=== PATIENT | female | born 1945 | race Caucasian/White ===

== ENCOUNTER 2021-06-07 13:48 | Inpatient (IN) ==
[2021-06-07] MEDS ORDERED: Ondansetron ODT 4 MG TAB.RAPDIS SL PRN (21:13)
[2021-06-07] MEDS: ALPRAZolam 0.5 MG TABLET PO PRN (22:55)
[2021-06-08] MEDS ORDERED: amLODIPine 5 MG TABLET PO STA (00:02)
[2021-06-08] MEDS: *HR* OxyCODONE Immed Rel 5 MG TABLET PO PRN ×4 (02:11→23:57)
[2021-06-08] MEDS ORDERED: *HR* Enoxaparin 30 MG/0.3 ML SYRINGE SQ SCH (04:30)
[2021-06-08 04:37] LABS: Basophils % 0.2 %; Eosinophils # 0.6 K/mcL (0.0-0.6); Eosinophils % 6.4 %; Hematocrit 31.5 % (35.3-44.9); Hemoglobin 9.8 g/dL (11.5-15.4); Immature Granulocytes % 1.9 % (0-4); Lymphocytes # 1.4 K/mcL (0.6-4.6); Lymphocytes % 13.6 %; Mean Corpuscular HGB Conc 31.1 g/dL (31.6-35.5); Mean Corpuscular Hemoglobin 30.6 pg (28.0-33.3); Mean Corpuscular Volume 98.4 fL (83.0-100.0); Mean Platelet Volume 9.1 fL (9.4-12.4); Monocytes % 10.3 %; Neutrophils # 6.8 K/mcL (1.6-8.9); Platelet Count 216 K/mcL (140-400); Red Cell Distribution Width 16.9 % (11.5-14.5); Segmented Neutrophils % 67.6 %; White Blood Count 10.1 K/mcL (4.3-11.1)
[2021-06-08 04:47] LABS: Clarity,Urine Slightly cloudy (Clear); Color,Urine Yellow (Yellow); Glucose,Urine (UA) Normal (Normal)
[2021-06-08 04:48] LABS: Amorphous Sediment,Urine Few per hpf (None-Few); Bilirubin,Urine Negative (Negative); Blood,Urine Large (Negative); Hyaline Casts,Urine Few per lpf (None Seen); Ketones,Urine Negative (Negative); Leukocyte Esterase,Urine Negative (Negative); Nitrite,Urine Negative (Negative); Protein,Urine 30 mg/dL (Neg-Trace); Specific Gravity,Urine 1.015 (1.010-1.025); Squamous Epithelial Cell,Urine Few per hpf (None-Few); Urobilinogen,Urine Normal (Normal)
[2021-06-08 04:53] LABS: Alanine Aminotransferase 16 Units/L (7-52); Albumin 2.8 g/dL (3.5-5.7); Albumin/Globulin Ratio 1.3 (1.1-2.2); Alkaline Phosphatase 41 Units/L (34-104); Aspartate Amino Transferase 35 Units/L (13-39); BUN/Creatinine Ratio 19 (6-26); Bilirubin,Total 0.5 mg/dL (0.3-1.0); Blood Urea Nitrogen 13 mg/dL (8-23); Calcium 8.2 mg/dL (8.6-10.3); Carbon Dioxide 29 mEq/L (23-29); Chloride 108 mEq/L (98-107); Globulin 2.2 g/dL (2.4-3.5); Glucose 89 mg/dL (70-105); Osmolality,Calculated 290 (280-300); Potassium 3.7 mEq/L (3.5-5.1); Sodium 140 mEq/L (136-145); eGFR For African Americans > 60 (> 60); eGFR For Non-African Americans > 60 (> 60)
[2021-06-08] MEDS: atenoloL 50 MG TABLET PO SCH (05:32)
[2021-06-08] MEDS: amLODIPine 5 MG TABLET PO SCH (05:32)
[2021-06-08] MEDS ORDERED: hydrALAZINE 25 MG TABLET PO ONE (07:57)
[2021-06-08] MEDS: Aspirin 81 MG TAB.CHEW PO SCH (08:26)
[2021-06-08] MEDS: ALPRAZolam 0.5 MG TABLET PO PRN ×2 (08:26→16:52)
[2021-06-08] MEDS: Ipratropium/Albuterol Neb 3 ML IH PRN (08:52)
[2021-06-09] MEDS: Ipratropium/Albuterol Neb 3 ML IH PRN (00:07)
[2021-06-09] MEDS: *HR* OxyCODONE Immed Rel 5 MG TABLET PO PRN ×3 (04:36→12:48)
[2021-06-09 05:13] LABS: Basophils % 0.4 %; Eosinophils % 3.9 %; Hematocrit 30.9 % (35.3-44.9); Hemoglobin 9.7 g/dL (11.5-15.4); Immature Granulocytes % 1.3 % (0-4); Lymphocytes # 1.2 K/mcL (0.6-4.6); Lymphocytes % 10.4 %; Mean Corpuscular HGB Conc 31.4 g/dL (31.6-35.5); Mean Corpuscular Hemoglobin 30.9 pg (28.0-33.3); Mean Corpuscular Volume 98.4 fL (83.0-100.0); Mean Platelet Volume 9.2 fL (9.4-12.4); Monocytes # 1.1 K/mcL (0.0-1.3); Monocytes % 9.4 %; Neutrophils # 8.5 K/mcL (1.6-8.9); Platelet Count 243 K/mcL (140-400); Red Blood Count 3.14 M/mcL (3.82-4.97); Red Cell Distribution Width 16.6 % (11.5-14.5); Segmented Neutrophils % 74.6 %; White Blood Count 11.4 K/mcL (4.3-11.1)
[2021-06-09 05:17] LABS: Basophils # 0.1 K/mcL (0.0-0.2); Eosinophils # 0.4 K/mcL (0.0-0.6)
[2021-06-09 05:26] LABS: BUN/Creatinine Ratio 17 (6-26); Blood Urea Nitrogen 13 mg/dL (8-23); Calcium 8.3 mg/dL (8.6-10.3); Carbon Dioxide 29 mEq/L (23-29); Chloride 104 mEq/L (98-107); Glucose 95 mg/dL (70-105); Osmolality,Calculated 290 (280-300); Potassium 3.7 mEq/L (3.5-5.1); Sodium 140 mEq/L (136-145); eGFR For African Americans > 60 (> 60); eGFR For Non-African Americans > 60 (> 60)
[2021-06-09] MEDS ORDERED: *HR* Enoxaparin 40 MG/0.4 ML SYRINGE SQ SCH (06:00)
[2021-06-09] MEDS: ALPRAZolam 0.5 MG TABLET PO PRN ×2 (06:31→16:12)
[2021-06-09] MEDS: amLODIPine 5 MG TABLET PO SCH (07:49)
[2021-06-09] MEDS: Aspirin 81 MG TAB.CHEW PO SCH (07:50)
[2021-06-09] MEDS: atenoloL 50 MG TABLET PO SCH (07:50)
[2021-06-09] MEDS ORDERED: Isovue-370 500 ML BOTTLE IVP ONE (13:50)
[2021-06-09] MEDS ORDERED: *HR* Heparin 5,000 UNIT/ML VIAL IVP ONE (17:05)
[2021-06-09] MEDS ORDERED: *HR* Heparin 5,000 UNIT/ML VIAL IVP PRN ×2 (17:05)
[2021-06-09] MEDS ORDERED: Heparin 25,000UNIT/250ML 1/2NS 25,000 UNIT/250 ML IV.SOLN IVC SCH (17:15)
[2021-06-09 17:40] VITALS: BP 159/81
[2021-06-09 17:50] LABS: Hematocrit 31.4 % (35.3-44.9); Hemoglobin 9.9 g/dL (11.5-15.4); Mean Corpuscular HGB Conc 31.5 g/dL (31.6-35.5); Mean Corpuscular Hemoglobin 30.7 pg (28.0-33.3); Mean Corpuscular Volume 97.5 fL (83.0-100.0); Mean Platelet Volume 8.8 fL (9.4-12.4); Platelet Count 237 K/mcL (140-400); Red Blood Count 3.22 M/mcL (3.82-4.97); Red Cell Distribution Width 16.3 % (11.5-14.5); White Blood Count 10.5 K/mcL (4.3-11.1)
[2021-06-09 18:05] LABS: INR 1.1; Prothrombin Time 12.2 Seconds (9.4-12.1)
[2021-06-09 18:13] LABS: Heparin anti-factor XA UFH < 0.04 IU/mL (0.30-0.70)
== END 2021-06-09 18:45 | disposition short-term general hospital (02) | DRG 945 ==
LOC: INPGRE 20:00
PROVIDERS: ADMIT Family Medicine; ATTEND Family Medicine

== ENCOUNTER 2021-06-14 21:15 | Inpatient (IN) ==
[2021-06-14] MEDS ORDERED: Ipratropium/Albuterol Neb 3 ML IH PRN (22:28)
[2021-06-14] MEDS: ALPRAZolam 1 MG TABLET PO PRN (23:09)
[2021-06-15 05:07] LABS: Basophils # 0.1 K/mcL (0.0-0.2); Basophils % 0.8 %; Eosinophils # 0.3 K/mcL (0.0-0.6); Eosinophils % 5.3 %; Hematocrit 32.8 % (35.3-44.9); Immature Granulocytes % 0.8 % (0-4); Lymphocytes # 1.6 K/mcL (0.6-4.6); Lymphocytes % 25.3 %; Mean Corpuscular HGB Conc 30.5 g/dL (31.6-35.5); Mean Corpuscular Hemoglobin 30.2 pg (28.0-33.3); Mean Corpuscular Volume 99.1 fL (83.0-100.0); Mean Platelet Volume 9.2 fL (9.4-12.4); Monocytes # 0.5 K/mcL (0.0-1.3); Monocytes % 8.3 %; Neutrophils # 3.8 K/mcL (1.6-8.9); Platelet Count 233 K/mcL (140-400); Red Blood Count 3.31 M/mcL (3.82-4.97); Segmented Neutrophils % 59.5 %; White Blood Count 6.4 K/mcL (4.3-11.1)
[2021-06-15 05:09] LABS: INR 2.3; Prothrombin Time 26.3 Seconds (9.4-12.1)
[2021-06-15 05:12] LABS: Activated Partial Thrombo Time 37.5 Seconds (26.0-36.0)
[2021-06-15 05:20] LABS: BUN/Creatinine Ratio 13 (6-26); Blood Urea Nitrogen 11 mg/dL (8-23); Carbon Dioxide 33 mEq/L (23-29); Chloride 103 mEq/L (98-107); Glucose 87 mg/dL (70-105); Osmolality,Calculated 289 (280-300); Potassium 3.9 mEq/L (3.5-5.1); Sodium 140 mEq/L (136-145); eGFR For African Americans > 60 (> 60); eGFR For Non-African Americans > 60 (> 60)
[2021-06-15] MEDS: atenoloL 50 MG TABLET PO SCH (10:04)
[2021-06-15] MEDS: Aspirin 81 MG TAB.CHEW PO SCH (10:04)
[2021-06-15] MEDS: amLODIPine 5 MG TABLET PO SCH (10:04)
[2021-06-15] MEDS: ALPRAZolam 1 MG TABLET PO PRN ×2 (10:08→20:46)
[2021-06-16 04:46] LABS: Basophils % 0.6 %; Eosinophils # 0.4 K/mcL (0.0-0.6); Eosinophils % 6.5 %; Hematocrit 32.8 % (35.3-44.9); Hemoglobin 10.1 g/dL (11.5-15.4); Immature Granulocytes % 0.8 % (0-4); Lymphocytes # 1.7 K/mcL (0.6-4.6); Lymphocytes % 27.6 %; Mean Corpuscular HGB Conc 30.8 g/dL (31.6-35.5); Mean Corpuscular Hemoglobin 30.1 pg (28.0-33.3); Mean Corpuscular Volume 97.9 fL (83.0-100.0); Mean Platelet Volume 8.7 fL (9.4-12.4); Monocytes # 0.6 K/mcL (0.0-1.3); Monocytes % 8.9 %; Neutrophils # 3.5 K/mcL (1.6-8.9); Platelet Count 208 K/mcL (140-400); Red Blood Count 3.35 M/mcL (3.82-4.97); Red Cell Distribution Width 15.8 % (11.5-14.5); Segmented Neutrophils % 55.6 %; White Blood Count 6.3 K/mcL (4.3-11.1)
[2021-06-16 05:00] LABS: INR 2.2; Prothrombin Time 24.6 Seconds (9.4-12.1)
[2021-06-16 05:12] LABS: BUN/Creatinine Ratio 13 (6-26); Blood Urea Nitrogen 12 mg/dL (8-23); Calcium 8.8 mg/dL (8.6-10.3); Carbon Dioxide 31 mEq/L (23-29); Chloride 102 mEq/L (98-107); Glucose 91 mg/dL (70-105); Osmolality,Calculated 287 (280-300); Potassium 3.8 mEq/L (3.5-5.1); Sodium 139 mEq/L (136-145); eGFR For African Americans > 60 (> 60); eGFR For Non-African Americans 58 (> 60)
[2021-06-16] MEDS: ALPRAZolam 1 MG TABLET PO PRN ×2 (08:33→19:46)
[2021-06-16] MEDS: amLODIPine 5 MG TABLET PO SCH (08:34)
[2021-06-16] MEDS: atenoloL 50 MG TABLET PO SCH (08:34)
[2021-06-16] MEDS: Aspirin 81 MG TAB.CHEW PO SCH (08:34)
[2021-06-16] MEDS: Acetaminophen 325 MG TABLET PO PRN (16:17)
[2021-06-16] MEDS ORDERED: *HR* Warfarin 2 MG TABLET PO ONE (18:00)
[2021-06-16] MEDS ORDERED: Warfarin perPT PO PRN (18:00)
[2021-06-17] MEDS: Ondansetron ODT 4 MG TAB.RAPDIS SL PRN (03:25)
[2021-06-17 07:06] LABS: INR 1.6; Prothrombin Time 18.4 Seconds (9.4-12.1)
[2021-06-17] MEDS: atenoloL 50 MG TABLET PO SCH (08:55)
[2021-06-17] MEDS: Aspirin 81 MG TAB.CHEW PO SCH (08:56)
[2021-06-17] MEDS: amLODIPine 5 MG TABLET PO SCH (08:56)
[2021-06-17] MEDS: ALPRAZolam 1 MG TABLET PO PRN ×2 (09:02→20:56)
[2021-06-17] MEDS ORDERED: *HR* Heparin 5,000 UNIT/ML VIAL IVP ONE (10:35)
[2021-06-17] MEDS ORDERED: *HR* Heparin 5,000 UNIT/ML VIAL IVP PRN ×2 (10:35)
[2021-06-17] MEDS: Heparin 25,000UNIT/250ML 1/2NS 25,000 UNIT/250 ML IV.SOLN IVC SCH (11:49)
[2021-06-17 13:04] LABS: Hematocrit 29.4 % (35.3-44.9); Hemoglobin 9.1 g/dL (11.5-15.4); Mean Corpuscular Hemoglobin 30.4 pg (28.0-33.3); Mean Corpuscular Volume 98.3 fL (83.0-100.0); Mean Platelet Volume 8.6 fL (9.4-12.4); Platelet Count 201 K/mcL (140-400); Red Blood Count 2.99 M/mcL (3.82-4.97); Red Cell Distribution Width 15.4 % (11.5-14.5); White Blood Count 7.1 K/mcL (4.3-11.1)
[2021-06-17 13:09] LABS: INR 1.8; Prothrombin Time 20.9 Seconds (9.4-12.1)
[2021-06-17 13:12] LABS: Heparin anti-factor XA UFH 1.16 IU/mL (0.30-0.70)
[2021-06-17] MEDS: Acetaminophen 325 MG TABLET PO PRN (13:46)
[2021-06-17] MEDS ORDERED: *HR* Warfarin 3 MG TABLET PO ONE (18:00)
[2021-06-18] MEDS: Ondansetron ODT 4 MG TAB.RAPDIS SL PRN (01:46)
[2021-06-18 07:41] LABS: INR 1.6; Prothrombin Time 18.5 Seconds (9.4-12.1)
[2021-06-18 07:42] LABS: Heparin anti-factor XA UFH 0.44 IU/mL (0.30-0.70)
[2021-06-18] MEDS: amLODIPine 5 MG TABLET PO SCH (08:08)
[2021-06-18] MEDS: Aspirin 81 MG TAB.CHEW PO SCH (08:08)
[2021-06-18] MEDS: atenoloL 50 MG TABLET PO SCH (08:08)
[2021-06-18] MEDS: ALPRAZolam 1 MG TABLET PO PRN ×2 (13:56→20:21)
[2021-06-18] MEDS ORDERED: *HR* Warfarin 4 MG TABLET PO ONE (18:00)
[2021-06-19 07:18] LABS: Basophils % 0.8 %; Eosinophils # 0.4 K/mcL (0.0-0.6); Eosinophils % 7.1 %; Hematocrit 30.8 % (35.3-44.9); Hemoglobin 9.3 g/dL (11.5-15.4); Immature Granulocytes % 0.6 % (0-4); Lymphocytes # 1.7 K/mcL (0.6-4.6); Lymphocytes % 34.1 %; Mean Corpuscular HGB Conc 30.2 g/dL (31.6-35.5); Mean Corpuscular Hemoglobin 30.6 pg (28.0-33.3); Mean Corpuscular Volume 101.3 fL (83.0-100.0); Mean Platelet Volume 8.8 fL (9.4-12.4); Monocytes # 0.6 K/mcL (0.0-1.3); Monocytes % 11.6 %; Neutrophils # 2.3 K/mcL (1.6-8.9); Platelet Count 187 K/mcL (140-400); Red Blood Count 3.04 M/mcL (3.82-4.97); Red Cell Distribution Width 15.5 % (11.5-14.5); Segmented Neutrophils % 45.8 %; White Blood Count 4.9 K/mcL (4.3-11.1)
[2021-06-19 07:25] LABS: INR 1.7; Prothrombin Time 18.9 Seconds (9.4-12.1)
[2021-06-19 07:36] LABS: BUN/Creatinine Ratio 16 (6-26); Blood Urea Nitrogen 16 mg/dL (8-23); Calcium 8.9 mg/dL (8.6-10.3); Carbon Dioxide 35 mEq/L (23-29); Chloride 99 mEq/L (98-107); Glucose 84 mg/dL (70-105); Osmolality,Calculated 282 (280-300); Potassium 3.9 mEq/L (3.5-5.1); Sodium 136 mEq/L (136-145); eGFR For African Americans > 60 (> 60); eGFR For Non-African Americans 54 (> 60)
[2021-06-19] MEDS: atenoloL 50 MG TABLET PO SCH (09:33)
[2021-06-19] MEDS: Aspirin 81 MG TAB.CHEW PO SCH (09:33)
[2021-06-19] MEDS: ALPRAZolam 1 MG TABLET PO PRN ×2 (09:34→21:16)
[2021-06-19] MEDS: amLODIPine 5 MG TABLET PO SCH (09:34)
[2021-06-19] MEDS: Heparin 25,000UNIT/250ML 1/2NS 25,000 UNIT/250 ML IV.SOLN IVC SCH (10:13)
[2021-06-19] MEDS: Ondansetron ODT 4 MG TAB.RAPDIS SL PRN (15:10)
[2021-06-19] MEDS ORDERED: *HR* Warfarin 3 MG TABLET PO ONE (18:00)
[2021-06-20 05:01] LABS: INR 1.9; Prothrombin Time 21.7 Seconds (9.4-12.1)
[2021-06-20] MEDS: Acetaminophen 325 MG TABLET PO PRN (08:04)
[2021-06-20] MEDS: amLODIPine 5 MG TABLET PO SCH (08:04)
[2021-06-20] MEDS: ALPRAZolam 1 MG TABLET PO PRN ×2 (08:04→20:43)
[2021-06-20] MEDS: atenoloL 50 MG TABLET PO SCH (08:05)
[2021-06-20] MEDS: Aspirin 81 MG TAB.CHEW PO SCH (08:05)
[2021-06-20] MEDS: Ondansetron ODT 4 MG TAB.RAPDIS SL PRN (10:45)
[2021-06-20] MEDS: Heparin 25,000UNIT/250ML 1/2NS 25,000 UNIT/250 ML IV.SOLN IVC SCH (16:49)
[2021-06-20] MEDS ORDERED: *HR* Warfarin 3 MG TABLET PO ONE (18:00)
[2021-06-21] MEDS: ALPRAZolam 1 MG TABLET PO PRN ×2 (06:33→20:40)
[2021-06-21 06:47] LABS: BUN/Creatinine Ratio 17 (6-26); Blood Urea Nitrogen 17 mg/dL (8-23); Calcium 9.1 mg/dL (8.6-10.3); Carbon Dioxide 33 mEq/L (23-29); Chloride 99 mEq/L (98-107); Glucose 85 mg/dL (70-105); INR 2.2; Osmolality,Calculated 283 (280-300); Potassium 4.2 mEq/L (3.5-5.1); Prothrombin Time 25.1 Seconds (9.4-12.1); Sodium 136 mEq/L (136-145); eGFR For African Americans > 60 (> 60); eGFR For Non-African Americans 53 (> 60)
[2021-06-21 06:50] LABS: Basophils % 0.7 %; Eosinophils # 0.5 K/mcL (0.0-0.6); Eosinophils % 8.6 %; Hematocrit 28.9 % (35.3-44.9); Immature Granulocytes % 0.5 % (0-4); Lymphocytes # 1.9 K/mcL (0.6-4.6); Lymphocytes % 35.1 %; Mean Corpuscular HGB Conc 31.1 g/dL (31.6-35.5); Mean Corpuscular Hemoglobin 30.9 pg (28.0-33.3); Mean Corpuscular Volume 99.3 fL (83.0-100.0); Monocytes # 0.6 K/mcL (0.0-1.3); Neutrophils # 2.4 K/mcL (1.6-8.9); Platelet Count 192 K/mcL (140-400); Red Blood Count 2.91 M/mcL (3.82-4.97); Red Cell Distribution Width 15.5 % (11.5-14.5); Segmented Neutrophils % 44.1 %; White Blood Count 5.5 K/mcL (4.3-11.1)
[2021-06-21] MEDS: Heparin 25,000UNIT/250ML 1/2NS 25,000 UNIT/250 ML IV.SOLN IVC SCH ×2 (07:56→13:07)
[2021-06-21] MEDS: Ondansetron ODT 4 MG TAB.RAPDIS SL PRN (08:18)
[2021-06-21] MEDS: atenoloL 50 MG TABLET PO SCH (09:29)
[2021-06-21] MEDS: amLODIPine 5 MG TABLET PO SCH (09:29)
[2021-06-21] MEDS: Aspirin 81 MG TAB.CHEW PO SCH (09:29)
[2021-06-21] MEDS ORDERED: *HR* Warfarin 2.5 MG TABLET PO ONE (18:00)
[2021-06-22 04:57] LABS: Prothrombin Time 22.4 Seconds (9.4-12.1)
[2021-06-22] MEDS: Aspirin 81 MG TAB.CHEW PO SCH (08:03)
[2021-06-22] MEDS: atenoloL 50 MG TABLET PO SCH (08:03)
[2021-06-22] MEDS: amLODIPine 5 MG TABLET PO SCH (08:03)
[2021-06-22] MEDS: ALPRAZolam 1 MG TABLET PO PRN ×2 (10:25→21:26)
[2021-06-22] MEDS ORDERED: *HR* Warfarin 4 MG TABLET PO ONE (18:00)
[2021-06-22] MEDS: Acetaminophen 325 MG TABLET PO PRN (22:57)
[2021-06-23 04:53] LABS: INR 2.2; Prothrombin Time 24.8 Seconds (9.4-12.1)
[2021-06-23] MEDS: ALPRAZolam 1 MG TABLET PO PRN ×2 (06:36→18:45)
[2021-06-23] MEDS: Aspirin 81 MG TAB.CHEW PO SCH (09:28)
[2021-06-23] MEDS: atenoloL 50 MG TABLET PO SCH (09:28)
[2021-06-23] MEDS: amLODIPine 5 MG TABLET PO SCH (09:28)
[2021-06-23] MEDS ORDERED: *HR* Warfarin 4 MG TABLET PO ONE (18:00)
[2021-06-23] MEDS: Acetaminophen 325 MG TABLET PO PRN (20:47)
[2021-06-24 06:59] LABS: INR 2.6; Prothrombin Time 29.1 Seconds (9.4-12.1)
[2021-06-24] MEDS: amLODIPine 5 MG TABLET PO SCH (07:55)
[2021-06-24] MEDS: ALPRAZolam 1 MG TABLET PO PRN ×2 (07:55→15:29)
[2021-06-24] MEDS: Aspirin 81 MG TAB.CHEW PO SCH (07:55)
[2021-06-24] MEDS: atenoloL 50 MG TABLET PO SCH (07:55)
[2021-06-24] MEDS: Ondansetron ODT 4 MG TAB.RAPDIS SL PRN (11:04)
[2021-06-24] MEDS ORDERED: *HR* Warfarin 3 MG TABLET PO ONE (18:00)
[2021-06-24] MEDS: Acetaminophen 325 MG TABLET PO PRN (19:43)
[2021-06-25] MEDS: ALPRAZolam 1 MG TABLET PO PRN ×2 (00:28→08:11)
[2021-06-25 06:39] LABS: INR 3.3; Prothrombin Time 37.4 Seconds (9.4-12.1)
[2021-06-25] MEDS: Aspirin 81 MG TAB.CHEW PO SCH (08:11)
[2021-06-25] MEDS: atenoloL 50 MG TABLET PO SCH (08:11)
[2021-06-25] MEDS: amLODIPine 5 MG TABLET PO SCH (08:12)
[2021-06-25 08:33] VITALS: RESP 16; O2SAT 98
[2021-06-25] MEDS: Ondansetron ODT 4 MG TAB.RAPDIS SL PRN (10:24)
[2021-06-25 12:35] VITALS: BP 126/69; PULSE 61; TEMP 98.1
[2021-06-25] MEDS ORDERED: *HR* Warfarin 1 MG TABLET PO ONE (18:00)
== END 2021-06-25 13:45 | disposition home health service (06) | DRG 945 ==
LOC: INPGRE 21:22
PROVIDERS: ADMIT Family Medicine; ATTEND Family Medicine

== ENCOUNTER 2021-07-26 18:57 | Inpatient (IN) ==
[2021-07-26 23:01] LABS: Basophils % 0.4 %; Eosinophils # 0.9 K/mcL (0.0-0.6); Eosinophils % 11.7 %; Hematocrit 33.3 % (35.3-44.9); Hemoglobin 10.3 g/dL (11.5-15.4); Immature Granulocytes % 0.4 % (0-4); Lymphocytes # 1.5 K/mcL (0.6-4.6); Lymphocytes % 19.8 %; Mean Corpuscular HGB Conc 30.9 g/dL (31.6-35.5); Mean Corpuscular Volume 97.1 fL (83.0-100.0); Mean Platelet Volume 8.8 fL (9.4-12.4); Monocytes # 0.7 K/mcL (0.0-1.3); Monocytes % 9.3 %; Neutrophils # 4.4 K/mcL (1.6-8.9); Platelet Count 144 K/mcL (140-400); Red Blood Count 3.43 M/mcL (3.82-4.97); Red Cell Distribution Width 14.9 % (11.5-14.5); Segmented Neutrophils % 58.4 %; White Blood Count 7.5 K/mcL (4.3-11.1)
[2021-07-26 23:07] LABS: INR 3.9; Prothrombin Time 42.8 Seconds (9.4-12.1)
[2021-07-26 23:09] LABS: Activated Partial Thrombo Time 40.9 Seconds (26.0-36.0)
[2021-07-26 23:14] LABS: Albumin 3.7 g/dL (3.5-5.7); Albumin/Globulin Ratio 1.1 (1.1-2.2); Bilirubin,Total 0.4 mg/dL (0.3-1.0); Calcium 9.3 mg/dL (8.6-10.3); Globulin 3.5 g/dL (2.4-3.5); Magnesium 2.4 mg/dL (1.6-2.6); Potassium 4.1 mEq/L (3.5-5.1); Total Protein 7.2 g/dL (6.4-8.9)
[2021-07-26] MEDS ORDERED: 0.9 % Sodium Chloride 1,000 ML IVC SCH (23:30)
[2021-07-26 23:57] LABS: Bilirubin,Urine Negative (Negative); Blood,Urine Trace-intact (Negative); Clarity,Urine Slightly Cloudy (Clear); Glucose,Urine (UA) Normal (Normal); Ketones,Urine Negative (Negative); Leukocyte Esterase,Urine Trace (Negative); Nitrite,Urine Negative (Negative); PH,Urine 5.5 pH Units (5.0-8.0); Protein,Urine 100 mg/dL (Neg-Trace); Specific Gravity,Urine 1.015 (1.010-1.025); Urobilinogen,Urine Normal (Normal)
[2021-07-27 00:01] LABS: Color,Urine Yellow (Yellow); RBC,Urine 0-3 per hpf (0-3)
[2021-07-27 00:02] LABS: Bacteria,Urine Few per hpf (None-Few)
[2021-07-27] MEDS ORDERED: Ipratropium/Albuterol Neb 3 ML IH PRN (01:22)
[2021-07-27] MEDS ORDERED: Ondansetron 4 MG/2 ML VIAL IVP PRN (01:22)
[2021-07-27] MEDS ORDERED: Naloxone 0.4 MG/ML INJ IVP PRN (01:22)
[2021-07-27] MEDS: ALPRAZolam 1 MG TABLET PO PRN ×3 (02:11→23:48)
[2021-07-27] MEDS: 0.9 % Sodium Chloride 1,000 ML IVC SCH ×3 (02:18→20:54)
[2021-07-27 05:28] LABS: Basophils % 0.4 %; Eosinophils # 0.9 K/mcL (0.0-0.6); Eosinophils % 13.1 %; Hematocrit 26.7 % (35.3-44.9); Immature Granulocytes % 0.4 % (0-4); Lymphocytes # 1.4 K/mcL (0.6-4.6); Lymphocytes % 20.3 %; Mean Corpuscular HGB Conc 31.8 g/dL (31.6-35.5); Mean Corpuscular Hemoglobin 30.5 pg (28.0-33.3); Mean Corpuscular Volume 95.7 fL (83.0-100.0); Mean Platelet Volume 8.8 fL (9.4-12.4); Monocytes # 0.8 K/mcL (0.0-1.3); Neutrophils # 3.9 K/mcL (1.6-8.9); Platelet Count 116 K/mcL (140-400); Red Blood Count 2.79 M/mcL (3.82-4.97); Red Cell Distribution Width 14.8 % (11.5-14.5); Segmented Neutrophils % 54.8 %; White Blood Count 7.1 K/mcL (4.3-11.1)
[2021-07-27 05:31] LABS: Hemoglobin 8.5 g/dL (11.5-15.4)
[2021-07-27 05:35] LABS: Prothrombin Time 43.8 Seconds (9.4-12.1)
[2021-07-27 05:40] LABS: Calcium 8.4 mg/dL (8.6-10.3); Potassium 4.2 mEq/L (3.5-5.1)
[2021-07-27] MEDS: amLODIPine 5 MG TABLET PO SCH (07:38)
[2021-07-27] MEDS: Aspirin 81 MG TAB.CHEW PO SCH (07:38)
[2021-07-27] MEDS: atenoloL 50 MG TABLET PO SCH (07:38)
[2021-07-27] MEDS: Acetaminophen 325 MG TABLET PO PRN (13:42)
[2021-07-27] MEDS ORDERED: *HR* Warfarin 1 MG TABLET PO ONE ×2 (16:00→18:00)
[2021-07-27] MEDS ORDERED: *HR* Warfarin 3 MG TABLET PO SCH ×2 (18:00)
[2021-07-28] MEDS: Acetaminophen 325 MG TABLET PO PRN ×2 (01:29→16:14)
[2021-07-28 04:55] LABS: Basophils % 0.3 %; Eosinophils # 0.8 K/mcL (0.0-0.6); Eosinophils % 11.8 %; Hematocrit 23.8 % (35.3-44.9); Hemoglobin 7.4 g/dL (11.5-15.4); Immature Granulocytes % 0.1 % (0-4); Lymphocytes # 1.5 K/mcL (0.6-4.6); Mean Corpuscular HGB Conc 31.1 g/dL (31.6-35.5); Mean Corpuscular Hemoglobin 29.8 pg (28.0-33.3); Monocytes # 0.7 K/mcL (0.0-1.3); Monocytes % 9.8 %; Neutrophils # 3.9 K/mcL (1.6-8.9); Platelet Count 151 K/mcL (140-400); Red Blood Count 2.48 M/mcL (3.82-4.97); Red Cell Distribution Width 14.5 % (11.5-14.5)
[2021-07-28 05:08] LABS: Calcium 7.9 mg/dL (8.6-10.3)
[2021-07-28 05:55] LABS: INR 2.7; Prothrombin Time 29.6 Seconds (9.4-12.1)
[2021-07-28] MEDS: atenoloL 50 MG TABLET PO SCH (07:47)
[2021-07-28] MEDS: Aspirin 81 MG TAB.CHEW PO SCH (07:47)
[2021-07-28] MEDS: amLODIPine 5 MG TABLET PO SCH (07:47)
[2021-07-28] MEDS: ALPRAZolam 1 MG TABLET PO PRN ×2 (10:54→19:44)
[2021-07-28] MEDS: 0.9 % Sodium Chloride 1,000 ML IVC SCH ×2 (10:56→22:11)
[2021-07-28] MEDS ORDERED: *HR* Warfarin 2 MG TABLET PO ONE (18:00)
[2021-07-29] MEDS: Acetaminophen 325 MG TABLET PO PRN (06:12)
[2021-07-29 06:15] LABS: Basophils % 0.3 %; Eosinophils # 0.7 K/mcL (0.0-0.6); Eosinophils % 11.7 %; Hematocrit 22.7 % (35.3-44.9); Hemoglobin 7.2 g/dL (11.5-15.4); Immature Granulocytes % 0.6 % (0-4); Lymphocytes # 1.5 K/mcL (0.6-4.6); Lymphocytes % 23.7 %; Mean Corpuscular HGB Conc 31.7 g/dL (31.6-35.5); Mean Corpuscular Hemoglobin 30.4 pg (28.0-33.3); Mean Corpuscular Volume 95.8 fL (83.0-100.0); Monocytes # 0.7 K/mcL (0.0-1.3); Neutrophils # 3.3 K/mcL (1.6-8.9); Platelet Count 161 K/mcL (140-400); Red Blood Count 2.37 M/mcL (3.82-4.97); Red Cell Distribution Width 14.2 % (11.5-14.5); Segmented Neutrophils % 52.7 %; White Blood Count 6.2 K/mcL (4.3-11.1)
[2021-07-29 06:37] LABS: Potassium 3.8 mEq/L (3.5-5.1)
[2021-07-29 06:49] LABS: Prothrombin Time 22.3 Seconds (9.4-12.1)
[2021-07-29] MEDS: Aspirin 81 MG TAB.CHEW PO SCH (07:43)
[2021-07-29] MEDS: 0.9 % Sodium Chloride 1,000 ML IVC SCH ×2 (07:43→14:48)
[2021-07-29] MEDS: atenoloL 50 MG TABLET PO SCH (07:43)
[2021-07-29] MEDS: amLODIPine 5 MG TABLET PO SCH (07:43)
[2021-07-29 07:51] VITALS: TEMP 98.4
[2021-07-29] MEDS ORDERED: *HR* Warfarin 3 MG TABLET PO ONE (11:05)
[2021-07-29] MEDS: Nitrofurantoin (BID) 100 MG CAPSULE PO SCH ×2 (11:14→17:00)
[2021-07-29] MEDS: ALPRAZolam 1 MG TABLET PO PRN (11:14)
[2021-07-29] MEDS ORDERED: FLU Vac QV 21-22 (6Month+)/PF 0.5 ML SYRINGE IM ONE (11:52)
[2021-07-29 16:57] VITALS: BP 149/62; PULSE 64; RESP 18; O2SAT 96
== END 2021-07-29 17:30 | DRG 535 ==
LOC: EMEROOGRE 18:57 → INPGRE 18:57
PROVIDERS: ADMIT Family Medicine; ATTEND Family Medicine

== ENCOUNTER 2021-09-04 15:50 | Observation (INO) ==
[2021-09-04] MEDS ORDERED: Ondansetron 4 MG/2 ML VIAL IVP ONE (16:22)
[2021-09-04] MEDS ORDERED: *HR* HYDROmorphone (PF) 1 MG/ML SYRINGE IVP ONE (16:22)
[2021-09-04 16:32] LABS: Basophils % 0.1 %; Eosinophils % 0.2 %; Hematocrit 26.7 % (35.3-44.9); Hemoglobin 8.3 g/dL (11.5-15.4); Immature Granulocytes % 0.4 % (0-4); Lymphocytes # 0.7 K/mcL (0.6-4.6); Lymphocytes % 6.2 %; Mean Corpuscular HGB Conc 31.1 g/dL (31.6-35.5); Mean Corpuscular Hemoglobin 29.9 pg (28.0-33.3); Mean Platelet Volume 8.9 fL (9.4-12.4); Monocytes # 0.7 K/mcL (0.0-1.3); Monocytes % 5.9 %; Neutrophils # 10.4 K/mcL (1.6-8.9); Platelet Count 235 K/mcL (140-400); Red Blood Count 2.78 M/mcL (3.82-4.97); Red Cell Distribution Width 15.1 % (11.5-14.5); Segmented Neutrophils % 87.2 %; White Blood Count 11.9 K/mcL (4.3-11.1)
[2021-09-04 16:34] LABS: INR 2.5
[2021-09-04 16:45] LABS: Calcium 8.4 mg/dL (8.6-10.3); Potassium 4.3 mEq/L (3.5-5.1)
[2021-09-04 17:31] LABS: Bilirubin,Urine Negative (Negative); Blood,Urine Small (Negative); Clarity,Urine Clear (Clear); Color,Urine Yellow (Yellow); Glucose,Urine (UA) Normal (Normal); Ketones,Urine Negative (Negative); Leukocyte Esterase,Urine Small (Negative); Nitrite,Urine Negative (Negative); Protein,Urine 100 mg/dL (Neg-Trace); Specific Gravity,Urine 1.025 (1.010-1.025); Urobilinogen,Urine Normal (Normal)
[2021-09-04 17:32] LABS: Bacteria,Urine Moderate per hpf (None-Few); Squamous Epithelial Cell,Urine Few per hpf (None-Few)
[2021-09-04] MEDS ORDERED: cefTRIAXone 1,000 MG in 0.9 % Sodium Chloride Mini Bag 100 ML IVPB ONE (17:48)
[2021-09-04] MEDS ORDERED: ALPRAZolam 0.5 MG TABLET PO ONE (18:46)
[2021-09-04] MEDS ORDERED: Mag Hydrox/Al Hydrox/Simeth 30 ML UDC PO PRN (20:39)
[2021-09-04] MEDS ORDERED: Naloxone 0.4 MG/ML INJ IVP PRN (20:39)
[2021-09-04] MEDS ORDERED: Ondansetron 4 MG/2 ML VIAL IVP PRN (20:39)
[2021-09-04] MEDS ORDERED: *HR* Promethazine 25 MG/ML VIAL IM PRN (20:39)
[2021-09-04] MEDS ORDERED: Acetaminophen 325 MG TABLET PO PRN ×2 (20:58→21:11)
[2021-09-04] MEDS ORDERED: Ipratropium/Albuterol Neb 3 ML IH PRN (20:58)
[2021-09-04] MEDS ORDERED: ALPRAZolam 1 MG TABLET PO PRN (21:00)
[2021-09-04] MEDS ORDERED: *HR* Labetalol 20 MG/4 ML SYRINGE IVP PRN (21:02)
[2021-09-04] MEDS: *HR* HYDROmorphone (PF) 1 MG/ML SYRINGE IVP PRN (22:20)
[2021-09-05 03:34] VITALS: RESP 18
[2021-09-05 06:06] LABS: Basophils % 0.1 %; Eosinophils # 0.1 K/mcL (0.0-0.6); Eosinophils % 1.4 %; Hematocrit 24.2 % (35.3-44.9); Hemoglobin 7.3 g/dL (11.5-15.4); Immature Granulocytes % 0.5 % (0-4); Lymphocytes # 0.9 K/mcL (0.6-4.6); Lymphocytes % 10.6 %; Mean Corpuscular HGB Conc 30.2 g/dL (31.6-35.5); Mean Platelet Volume 8.7 fL (9.4-12.4); Monocytes # 0.9 K/mcL (0.0-1.3); Monocytes % 9.6 %; Neutrophils # 6.9 K/mcL (1.6-8.9); Platelet Count 168 K/mcL (140-400); Red Blood Count 2.52 M/mcL (3.82-4.97); Segmented Neutrophils % 77.8 %; White Blood Count 8.9 K/mcL (4.3-11.1)
[2021-09-05 06:12] LABS: INR 1.3; Prothrombin Time 14.4 Seconds (9.4-12.1)
[2021-09-05 06:15] LABS: Activated Partial Thrombo Time 28.8 Seconds (26.0-36.0)
[2021-09-05 06:19] LABS: Calcium 8.3 mg/dL (8.6-10.3); Potassium 4.3 mEq/L (3.5-5.1)
[2021-09-05] MEDS: *HR* HYDROmorphone (PF) 1 MG/ML SYRINGE IVP PRN (06:46)
[2021-09-05 07:41] LABS: Acinetobacter baumannii by PCR Not Detected (Not Detect); Candida albicans by PCR Not Detected (Not Detect); Candida glabrata by PCR Not Detected (Not Detect); Candida krusei by PCR Not Detected (Not Detect); Candida parapsilosis by PCR Not Detected (Not Detect); Candida tropicalis by PCR Not Detected (Not Detect); Enterobacter cloacae Cmplx PCR Not Detected (Not Detect); Enterococcus by PCR Not Detected (Not Detect); Escherichia coli by PCR DETECTED (Not Detect); Klebsiella oxytoca by PCR Not Detected (Not Detect); Klebsiella pneumoniae by PCR Not Detected (Not Detect); Proteus by PCR Not Detected (Not Detect); Pseudomonas aeruginosa by PCR Not Detected (Not Detect); Serratia marcescens by PCR Not Detected (Not Detect); Staphylococcus aureus by PCR Not Detected (Not Detect); Staphylococcus by PCR Not Detected (Not Detect); Streptococcus agalactiae(B)PCR Not Detected (Not Detect); Streptococcus by PCR Not Detected (Not Detect); Streptococcus pneumoniae PCR Not Detected (Not Detect); Streptococcus pyogenes (A) PCR Not Detected (Not Detect)
[2021-09-05 07:58] VITALS: BP 141/65; PULSE 59; TEMP 98.8; O2SAT 94
[2021-09-05] MEDS ORDERED: 0.9 % Sodium Chloride 250 ML IVC SCH (08:30)
[2021-09-05] MEDS ORDERED: cefTRIAXone 1,000 MG in 0.9 % Sodium Chloride Mini Bag 100 ML IVPB SCH (09:00)
[2021-09-05] MEDS ORDERED: atenoloL 50 MG TABLET PO SCH (09:00)
[2021-09-05] MEDS ORDERED: amLODIPine 5 MG TABLET PO SCH (09:00)
== END 2021-09-05 08:05 | disposition short-term general hospital (02) ==
LOC: INPGRE 15:50 → EMEROOGRE 15:50 → INPGRE 19:43
PROVIDERS: ADMIT Family Medicine; ATTEND Family Medicine